=== PATIENT | female | born 1985 | race Caucasian/White ===

== ENCOUNTER 2017-06-23 13:15 | Emergency (ER) | payer OTHER ==
[~2017-06-23] VITALS: Ht 165.1 cm; Wt 80.0 kg
[2017-06-23 13:24] VITALS: BP 131/61; PULSE 89; RESP 16; TEMP 98; O2SAT 99
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
== END 2017-06-23 15:28 | disposition home or self-care (01) ==
LOC: NEPK 13:15
DX: S53.402A Unspecified sprain of left elbow, initial encounter (principal); V49.40XA Driver injured in collision with unspecified motor vehicles in traffic accident, initial encounter
CPT/HCPCS: 73080; 99283